=== PATIENT | male | born 1955 | race African-American/Black ===

== ENCOUNTER 2019-05-13 20:24 | Inpatient (IN) | payer MEDICARE, MEDICAID ==
[~2019-05-13] VITALS: Ht 172.7 cm; Wt 77.1 kg
[~2019-05-13 20:24] MED LIST: AMLO10TA4; ARIP30TA2; BUPR100T13; BUPR100T13 PO; FENTANYL PATCH; FLOMAX; FLUO20CA33 PO; METO-396 PO; OXYC20TA41; OXYC30TA86 PO; RESPERIDOL; RISP1 PO; TRAV2.5D OP; [UNRECOGNIZED DRUG - CODE]; [UNRECOGNIZED DRUG - CODE] PO
[2019-05-13] MEDS ORDERED: NITROGLYCERIN 0.4MG TABLET SL SL PRN (21:15)
[2019-05-13] MEDS ORDERED: ASPIRIN 81MG TABLET PO ONE (21:15)
[2019-05-13 21:36] LABS: BASOPHILS % 0.9 % (0.0-2.0); EOSINOPHILS % 8.5 % (0.0-5.0); HEMATOCRIT. 40.7 % (42.0-52.0); HEMOGLOBIN. 13.3 g/dL (14.0-18.0); LYMPHOCYTES % 26.6 % (20.0-50.0); MEAN CORPUSCULAR HEMOGLOBIN 29.2 pg (28.0-32.0); MEAN CORPUSCULAR VOLUME 89.3 fL (80.0-94.0); MONOCYTES % 9.9 % (2.0-8.0); NEUTROPHILS % 54.1 % (40.0-76.0); PLATELET 247 x1000/uL (130-400); RED BLOOD CELL COUNT 4.56 mill/uL (4.7-6.1); RED CELL DISTRIBUTION WIDTH 14.3 % (11.6-14.6)
[2019-05-13 21:40] LABS: CHLORIDE 104 mEq/L (98-107)
[2019-05-13 21:43] LABS: ETHANOL BLOOD < 10 mg/dL
[2019-05-13 23:44] LABS: *AMPHETAMINES SCREEN URINE NEGATIVE (NEGATIVE); *BARBITURATES SCREEN URINE NEGATIVE (NEGATIVE); *BENZODIAZEPINES SCREEN URINE NEGATIVE (NEGATIVE); *COCAINE SCREEN URINE NEGATIVE (NEGATIVE)
[2019-05-13 23:45] LABS: CANNABINOID URINE SCREEN NEGATIVE (NEGATIVE); METHADONE URINE SCREEN PRESUMTIVE POSITIVE (NEGATIVE); OPIATES URINE SCREEN NEGATIVE (NEGATIVE); PHENCYCLIDINE URINE SCREEN NEGATIVE (NEGATIVE)
[2019-05-14] VITALS: BP 111/78
[2019-05-14 04:00] VITALS: BP 118/76
[2019-05-14] MEDS ORDERED: HYDROCODONE/ACETAMINOPHEN 5/325MG TABLET PO PRN (07:45)
[2019-05-14] MEDS ORDERED: CLONIDINE 0.1MG TABLET PO PRN (07:45)
[2019-05-14] MEDS ORDERED: DOCUSATE SODIUM 100MG CAPSULE PO PRN (07:45)
[2019-05-14] MEDS ORDERED: DIPHENHYDRAMINE 50MG/ML VIAL IV PRN (07:45)
[2019-05-14] MEDS ORDERED: MAGNESIUM/ALUMINUM HYDROXIDE/SIMETHICONE 30ML UDC PO PRN (07:45)
[2019-05-14] MEDS ORDERED: GUAIFENESIN 200MG/10ML SUGAR FREE UDC PO PRN (07:45)
[2019-05-14] MEDS ORDERED: IPRATROPIUM/ALBUTEROL 0.5-3(2.5)MG/3ML NEB HHN PRN (07:45)
[2019-05-14] MEDS ORDERED: ACETAMINOPHEN 325MG TABLET PO PRN (07:45)
[2019-05-14] MEDS ORDERED: ONDANSETRON HCL 4MG/2ML INJ IV PRN (07:45)
[2019-05-14 08:00] VITALS: BP 126/79
[2019-05-14] MEDS ORDERED: KETOROLAC 30MG/ML VIAL IV PRN (08:45)
[2019-05-14 08:57] VITALS: BP 126/79
[2019-05-14] MEDS ORDERED: ENOXAPARIN 40MG/0.4ML SYR SUBCUT SCH (09:00)
== END 2019-05-14 10:30 | disposition left against medical advice (07) | DRG 206 ==
LOC: ER 20:24 → 8WST 23:13 → EDBEDREQTM 23:21 → EDBEDREQ 23:21 → ENRESERV 23:25
PROVIDERS: ADMIT Internal Medicine; ATTEND Internal Medicine
DX: M94.0 Chondrocostal junction syndrome [Tietze] (principal); F17.200 Nicotine dependence, unspecified, uncomplicated; I10 Essential (primary) hypertension; J44.9 Chronic obstructive pulmonary disease, unspecified; Z53.21 Procedure and treatment not carried out due to patient leaving prior to being seen by health care provider; N40.0 Benign prostatic hyperplasia without lower urinary tract symptoms; Z88.5 Allergy status to narcotic agent; Z79.899 Other long term (current) drug therapy; Z90.49 Acquired absence of other specified parts of digestive tract
CPT/HCPCS: 36415; 71045; 80305; 80320; 83880; 84484; 93005; 93306; 99285; J1650; J1885; G0480

== ENCOUNTER 2019-07-10 22:49 | Emergency (ER) | payer MEDICARE, MEDICAID ==
[~2019-07-10] VITALS: Ht 175.3 cm; Wt 70.0 kg
[2019-07-11 13:10] VITALS: BP 138/91
== END 2019-07-11 13:15 | disposition home or self-care (01) ==
LOC: ER 22:49
DX: T73.0XXA Starvation, initial encounter (principal); X58.XXXA Exposure to other specified factors, initial encounter; Z59.0 Homelessness; N40.0 Benign prostatic hyperplasia without lower urinary tract symptoms; M79.7 Fibromyalgia; H40.9 Unspecified glaucoma; I10 Essential (primary) hypertension; H26.9 Unspecified cataract; F17.200 Nicotine dependence, unspecified, uncomplicated; Z86.19 Personal history of other infectious and parasitic diseases
CPT/HCPCS: 99283

== ENCOUNTER 2020-11-03 23:52 | Emergency (ER) | payer MEDICARE, MEDICAID ==
[~2020-11-03] VITALS: Ht 180.3 cm; Wt 75.0 kg
[~2020-11-03 23:52] MED LIST changes: +ALBU4TAB6 MT; -ARIP30TA2; +BIMA2.5D4 EACHEYE; -BUPR100T13; -BUPR100T13 PO; +DULO60CA44 PO; +DUTA0.5C37 PO; -FENTANYL PATCH; -FLOMAX; -FLUO20CA33 PO; +FLUT1DIS2 INH; +GABA-532 MT; +LORA-250 MT; +LURA120T MT; -OXYC20TA41; -OXYC30TA86 PO; -RESPERIDOL; -RISP1 PO; +TAMS-11 PO; -TRAV2.5D OP; -[UNRECOGNIZED DRUG - CODE]
[2020-11-04] MEDS ORDERED: KETOROLAC 60MG/2ML VIAL IM STA (00:16)
[2020-11-04] MEDS ORDERED: NITROGLYCERIN 0.4MG TABLET SL SL PRN (00:30)
[2020-11-04] MEDS ORDERED: LORAZEPAM 1MG TABLET PO ONE (00:30)
[2020-11-04 00:48] LABS: HEMATOCRIT. 36.7 % (42.0-52.0); HEMOGLOBIN. 12.3 g/dL (14.0-18.0); MEAN CORPUSCULAR HEMOGLOBIN 31.1 pg (28.0-32.0); MEAN CORPUSCULAR VOLUME 92.7 fL (80.0-94.0); MEAN PLATELET VOLUME 7.7 fl (7.4-10.4); PLATELET 264 x1000/uL (130-400); RED BLOOD CELL COUNT 3.95 mill/uL (4.7-6.1); RED CELL DISTRIBUTION WIDTH 14.5 % (11.6-14.6)
[2020-11-04 00:54] LABS: CHLORIDE 101 mEq/L (98-107)
[2020-11-04 01:14] LABS: PLATELET ESTIMATE NORMAL
[2020-11-04 03:28] VITALS: BP 109/74
== END 2020-11-04 03:30 | disposition home or self-care (01) ==
LOC: ER 23:52
DX: F15.10 Other stimulant abuse, uncomplicated (principal); R07.89 Other chest pain; J45.909 Unspecified asthma, uncomplicated; N40.0 Benign prostatic hyperplasia without lower urinary tract symptoms; H40.9 Unspecified glaucoma; Z59.0 Homelessness; Z90.49 Acquired absence of other specified parts of digestive tract
CPT/HCPCS: 36415; 71045; 80053; 83880; 84484; 85025; 93005; 96372; 99285; J1885

== ENCOUNTER 2022-07-21 18:13 | Emergency (ER) | payer MEDICARE, MEDICAID ==
[~2022-07-21] VITALS: Ht 172.7 cm; Wt 69.0 kg
[~2022-07-21 18:13] MED LIST changes: -DULO60CA44 PO; +DULO60CA45 PO
[2022-07-21 20:53] LABS: BASOPHILS % 1.3 % (0.0-2.0); HEMATOCRIT. 42.4 % (42.0-52.0); HEMOGLOBIN. 14.1 g/dL (14.0-18.0); LYMPHOCYTES % 26.9 % (20.0-50.0); MEAN CORPUSCULAR HEMOGLOBIN 30.9 pg (28.0-32.0); MEAN CORPUSCULAR VOLUME 92.8 fL (80.0-94.0); MEAN PLATELET VOLUME 8.5 fl (7.4-10.4); MONOCYTES % 8.7 % (2.0-8.0); NEUTROPHILS % 62.1 % (40.0-76.0); PLATELET 241 x1000/uL (130-400); RED BLOOD CELL COUNT 4.57 mill/uL (4.7-6.1); RED CELL DISTRIBUTION WIDTH 13.7 % (11.6-14.6)
[2022-07-21 20:58] LABS: CHLORIDE 98 mEq/L (98-107)
[2022-07-21 21:00] LABS: INR 1.1; PROTHROMBIN TIME 11.4 sec (9.6-11.0)
[2022-07-22 03:00] VITALS: BP 141/85
== END 2022-07-22 05:30 | disposition left against medical advice (07) ==
LOC: ER 18:13
DX: R07.89 Other chest pain (principal); J45.909 Unspecified asthma, uncomplicated; Z85.9 Personal history of malignant neoplasm, unspecified; J44.9 Chronic obstructive pulmonary disease, unspecified; I10 Essential (primary) hypertension; M79.7 Fibromyalgia; H40.9 Unspecified glaucoma; Z90.49 Acquired absence of other specified parts of digestive tract; Z87.891 Personal history of nicotine dependence; Z79.899 Other long term (current) drug therapy
CPT/HCPCS: 36415; 71045; 80053; 83880; 84484; 85025; 93005; 99285